=== PATIENT | female | born 1995 | race Caucasian/White ===

== ENCOUNTER 2021-07-01 07:31 | Day surgery (SDC) | payer BC ==
[2021-07-01 08:02] VITALS: BMI 32.9
[2021-07-01] MEDS ORDERED: hydrALAZINE 20 MG/ML VIAL SLOW IVP PRN (10:15)
== END 2021-07-01 10:15 | disposition home or self-care (01) ==
LOC: CSHLD/OP 07:31
PROVIDERS: ATTEND Obstetrics & Gynecology
DX: O47.1 False labor at or after 37 completed weeks of gestation (principal); Z3A.39 39 weeks gestation of pregnancy
CPT/HCPCS: 99282

== ENCOUNTER 2021-07-01 16:46 | Inpatient (IN) | payer BC ==
[~2021-07-01 16:46] MED LIST: Bupivacaine 0.25% HCL 30 ML VIAL ONE; Bupivacaine/Epinephrine 0.25% 30 ML VIAL ONE; ePHEDrine Sulfate 50 MG/10 ML VIAL ONE
[2021-07-01] MEDS ORDERED: hydrALAZINE 20 MG/ML VIAL SLOW IVP PRN (17:26)
[2021-07-01] MEDS ORDERED: Misoprostol 200 MCG TAB PR PRN (17:26)
[2021-07-01] MEDS ORDERED: Butorphanol Tartrate 1 MG/ML VIAL SLOW IVP PRN (17:26)
[2021-07-01] MEDS ORDERED: HYDROcodone/Acetaminophen 5/325 mg Tablet PO PRN ×2 (17:26)
[2021-07-01] MEDS ORDERED: Promethazine HCl 25 MG/ML VIAL IM PRN ×2 (17:26→19:35)
[2021-07-01] MEDS ORDERED: Ondansetron PF 4 MG/2 ML Vial IVP PRN ×2 (17:26→19:35)
[2021-07-01] MEDS ORDERED: Lidocaine 1% (PF) 30 ML VIAL SC PRN (17:26)
[2021-07-01] MEDS ORDERED: Methylergonovine 0.2 MG/ML VIAL IM PRN (17:26)
[2021-07-01] MEDS ORDERED: Ibuprofen 800 MG TAB PO PRN (17:26)
[2021-07-01] MEDS ORDERED: Acetaminophen 500 MG TAB PO PRN (17:26)
[2021-07-01] MEDS ORDERED: Lactated Ringer's 1,000 ML IV SCH (17:30)
[2021-07-01] MEDS ORDERED: NS w/ Oxytocin 30 units 500 ML IV SCH (17:30)
[2021-07-01 17:41] VITALS: BMI 32.9
[2021-07-01 17:55] LABS: Hemoglobin 11.5 g/dL (12.0-15.5); Mean Corpuscular HGB CONC 33.3 g/dL (32.0-36.0); Mean Corpuscular Hemoglobin 28.7 pg (27.0-33.0); Mean Platelet Volume 11.6 fl (7.4-10.4); Platelet Count 190 10x3/uL (150-450); RBC Distribution Width 14.6 % (11.5-14.5); Red Blood Cell (RBC) Count 4.01 10x6/uL (3.90-5.03); White Blood Cell (WBC) Count 13.6 10x3/uL (3.5-10.5)
[2021-07-01] MEDS ORDERED: Fentanyl 2 mcg/Bup 0.1% Cadd 100 ML ONE (18:00)
[2021-07-01 18:15] LABS: Hep B Surf Ag Non-Reactive S/CO (NonReactive)
[2021-07-01 18:19] LABS: Syphilis Antibody Nonreactive (Nonreactive); Syphilis Antibody Index 0.07 S/CO (<1.00 Non-Reactive)
[2021-07-01 18:24] LABS: HBSAg Index 0.17 S/CO (0-0.99)
[2021-07-01] MEDS ORDERED: Butorphanol Tartrate 1 MG/ML VIAL ONE (18:31)
[2021-07-01] MEDS ORDERED: Moisturizing Cream (Eucerin) 113 GM JAR TOP PRN (19:35)
[2021-07-01] MEDS ORDERED: ePHEDrine Sulfate 50 MG/10 ML VIAL SLOW IVP PRN (19:35)
[2021-07-01] MEDS ORDERED: Lactated Ringer's 500 ML IV PRN (19:35)
[2021-07-01] MEDS ORDERED: Acetaminophen 325 MG TAB PO PRN (19:35)
[2021-07-01] MEDS ORDERED: diphenhydrAMINE 50 MG/ML VIAL IVP PRN (19:35)
[2021-07-01] MEDS ORDERED: Naloxone HCl 0.4 mg/ml Vial IVP PRN ×2 (19:35)
[2021-07-01] MEDS ORDERED: Fentanyl 2 mcg/Bupivacaine 0.1% Cassette 100 ML EPIDURAL SCH (19:45)
[2021-07-01] MEDS ORDERED: Communication Order-Pharmacy FS SCH (19:45)
[2021-07-01 22:00] LABS: SARS-CoV-2 NAA Rapid Test Not Detected (NotDetected)
[2021-07-01] MEDS ORDERED: Silver Nitrate Application 1 EACH ONE (23:23)
[2021-07-02] MEDS ORDERED: Misoprostol 200 MCG TAB VAG PRN (00:38)
[2021-07-02] MEDS ORDERED: Bisacodyl 10 MG SUPP PR PRN (00:38)
[2021-07-02] MEDS ORDERED: Milk Of Magnesia 30 ML UDCUP PO PRN (00:38)
[2021-07-02] MEDS ORDERED: Benzocaine-Menthol 82.5 ML CAN TOP PRN (00:38)
[2021-07-02] MEDS ORDERED: Methylergonovine 0.2 MG/ML VIAL IM PRN (00:38)
[2021-07-02] MEDS ORDERED: Ondansetron PF 4 MG/2 ML Vial IVP PRN (00:38)
[2021-07-02] MEDS ORDERED: HYDROcodone/Acetaminophen 5/325 mg Tablet PO PRN ×2 (00:38)
[2021-07-02] MEDS ORDERED: Lanolin Ointment 7 GM TUBE TOP PRN (00:38)
[2021-07-02] MEDS ORDERED: hydrALAZINE 20 MG/ML VIAL SLOW IVP PRN (00:38)
[2021-07-02] MEDS: Ibuprofen 800 MG TAB PO SCH ×3 (06:21→21:43)
[2021-07-02] MEDS: Ferrous Sulfate 325 MG TAB PO SCH (07:36)
[2021-07-02] MEDS: Docusate 100 MG CAP PO SCH ×2 (09:57→21:43)
[2021-07-03] MEDS: Ibuprofen 800 MG TAB PO SCH ×2 (05:52→13:18)
[2021-07-03] MEDS: Ferrous Sulfate 325 MG TAB PO SCH (06:52)
[2021-07-03] MEDS: Docusate 100 MG CAP PO SCH (07:58)
[2021-07-03 08:02] VITALS: BP 120/69; TEMP 97.9
== END 2021-07-03 14:24 | disposition home or self-care (01) | DRG 807 ==
LOC: CSHLD/OP 16:46 → CSHLD 19:50 → CSHPP 07-02 01:55
PROVIDERS: ADMIT Obstetrics & Gynecology; ATTEND Obstetrics & Gynecology
PROC: 10E0XZZ Delivery of Products of Conception, External Approach (ICD-10-PCS; principal; 2021-07-01)
PROC: 0HQ9XZZ Repair Perineum Skin, External Approach (ICD-10-PCS; 2021-07-01)
DX: O99.344 Other mental disorders complicating childbirth (principal); Z37.0 Single live birth; F41.9 Anxiety disorder, unspecified; F32.A Depression, unspecified; J45.909 Unspecified asthma, uncomplicated; O99.52 Diseases of the respiratory system complicating childbirth; Z20.822 Contact with and (suspected) exposure to COVID-19; Z79.899 Other long term (current) drug therapy; Z90.49 Acquired absence of other specified parts of digestive tract; Z90.89 Acquired absence of other organs; Z3A.39 39 weeks gestation of pregnancy; O70.0 First degree perineal laceration during delivery
CPT/HCPCS: 36415; 51702; 85027; 86780; 86850; 86900; 86901; 87340; 99285; J0595; J2590; J7120; S0020; U0002